=== PATIENT | female | born 1975 | race Asian ===

== ENCOUNTER 2025-01-21 01:40 | Emergency (ER) | payer BC, MEDICAID ==
[~2025-01-21] VITALS: Ht 170.2 cm; Wt 59.5 kg
[2025-01-21 01:46] VITALS: TEMP 98.4
[2025-01-21 03:13] VITALS: BP 132/79; PULSE 63; RESP 18; O2SAT 96
[2025-01-21 03:35] LABS: BASOPHILS % (AUTO) 0.5 % (0.0-2.0); EOSINOPHILS % (AUTO) 1.4 % (1.0-6.0); HEMATOCRIT 33.6 % (36-46); HEMOGLOBIN 10.8 g/dL (12.0-16.0); LYMPHOCYTES % (AUTO) 35.6 % (22.0-44.0); MEAN CORPUSCULAR HEMOGLOBIN 26.2 pg (26.0-34.0); MEAN CORPUSCULAR VOLUME 82 fL (80-100); MONOCYTES # (AUTO) 0.3 K/uL (0.1-1.0); NEUTROPHILS # (AUTO) 1.4 K/uL (1.8-7.7); NEUTROPHILS % (AUTO) 51.5 % (40.0-70.0); PLATELET COUNT (AUTO) 328 K/uL (150-450); RED BLOOD CELL COUNT(AUTO) 4.11 MIL/uL (4.00-5.20); RED CELL DISTRIBUTION WIDTH 18.4 % (11.5-14.5); WHITE BLOOD COUNT (AUTO) 2.7 K/uL (4.5-11.0)
[2025-01-21 03:45] LABS: CALCIUM, TOTAL 8.4 mg/dL (8.8-10.5); CREATININE 1.09 mg/dL (0.60-1.30); POTASSIUM 4.1 mmol/L (3.5-5.1)
== END 2025-01-21 03:58 | disposition home or self-care (01) ==
LOC: EMS 01:42
DX: R04.0 Epistaxis (principal); D64.9 Anemia, unspecified; R42 Dizziness and giddiness
CPT/HCPCS: 80048; 85025; 99283

== ENCOUNTER → 2025-01-22 14:27 | Emergency (ER) | payer BC, MEDICAID | END | disposition left against medical advice (07) | LOC: EMS 14:27 | DX: M54.9 Dorsalgia, unspecified (principal); Z53.21 Procedure and treatment not carried out due to patient leaving prior to being seen by health care provider ==

== ENCOUNTER → 2025-04-11 | Emergency (ER) | payer BC, MEDICAID | END | disposition still patient (30) | LOC: EMS 09:29 | DX: F32.A Depression, unspecified (principal); Z53.21 Procedure and treatment not carried out due to patient leaving prior to being seen by health care provider | CPT/HCPCS: 99281; Z7502 ==

== ENCOUNTER 2025-04-12 16:15 | Emergency (ER) | payer BC, MEDICAID | END 2025-04-12 17:06 | disposition left against medical advice (07) | LOC: EMS 16:16 | DX: Z00.00 Encounter for general adult medical examination without abnormal findings (principal); Z53.21 Procedure and treatment not carried out due to patient leaving prior to being seen by health care provider | CPT/HCPCS: 99281; Z7502 ==

== ENCOUNTER 2025-08-24 00:10 | Emergency (ER) | payer BC, MEDICAID ==
[~2025-08-24] VITALS: Ht 170.2 cm; Wt 59.1 kg
[2025-08-24 00:23] VITALS: BP 131/86; PULSE 88; RESP 18; TEMP 98.2; O2SAT 98
== END 2025-08-24 01:34 | disposition left against medical advice (07) ==
LOC: EMS 00:10
DX: I10 Essential (primary) hypertension (principal); Z53.21 Procedure and treatment not carried out due to patient leaving prior to being seen by health care provider
CPT/HCPCS: 99281; Z7502

== ENCOUNTER 2025-08-26 20:46 | Emergency (ER) | payer BC, MEDICAID | END 2025-08-26 22:58 | disposition left against medical advice (07) | LOC: EMS 20:47 | DX: M25.519 Pain in unspecified shoulder (principal); Z53.21 Procedure and treatment not carried out due to patient leaving prior to being seen by health care provider ==